=== PATIENT | male | born 1985 | race Hispanic/Latino ===

== ENCOUNTER 2020-07-01 05:08 | Inpatient (IN) | payer SELFPAY ==
[2020-07-01 05:18] VITALS: BMI 28.0
[2020-07-01] MEDS ORDERED: Propofol BOLUS 1,000 MG/100 ML VIAL IV PRN (05:20)
[2020-07-01] MEDS ORDERED: Propofol 1,000 MG/100 ML VIAL IV PRN (05:20)
[2020-07-01] MEDS ORDERED: Propofol 1,000 MG/100 ML VIAL IV ONE (05:26)
[2020-07-01 05:32] VITALS: TEMP 98.7
[2020-07-01] MEDS: Sodium Chloride 0.9% 1,000 ML IV SCH ×2 (06:16→16:54)
[2020-07-01] MEDS ORDERED: Sodium Chloride 0.9% (PF) 10 ML VIAL FS PRN (06:45)
[2020-07-01 06:48] LABS: #Eosinphils 0.1 10x3/uL (0.0-0.5); #Monocytes 0.3 10x3/uL (0.0-1.1); #Neutrophils 2.1 10x3/uL (1.5-8.4); %Basophils 0.5 % (0.0-2.0); %Eosinophils 1.4 % (0.0-6.0); %Lymphocytes 44.4 % (18.0-47.0); %Monocytes 5.9 % (0.0-10.0); %Neutrophils 47.6 % (40.0-75.0); Hemoglobin 13.8 g/dL (13.5-17.5); Mean Corpuscular HGB CONC 33.2 g/dL (32.0-36.0); Mean Corpuscular Hemoglobin 29.5 pg (27.0-33.0); Mean Corpuscular Volume 88.9 fl (81.2-95.1); Mean Platelet Volume 9.2 fl (7.4-10.4); Platelet Count 269 10x3/uL (150-450); RBC Distribution Width 12.7 % (11.5-14.5); Red Blood Cell (RBC) Count 4.68 10x6/uL (4.32-5.72); White Blood Cell (WBC) Count 4.4 10x3/uL (3.5-10.5)
[2020-07-01 07:02] LABS: Anion Gap 15 mmol/L (10-20); BUN (Urea Nitrogen) 7 mg/dL (8.9-20.6); Calc. Creatinine Clearance 160 mL/min (70-130); Calcium 7.8 mg/dL (7.8-10.44); Carbon Dioxide 24 mmol/L (22-29); Chloride 108 mmol/L (98-107); Glucose 120 mg/dL (70-105); Magnesium 2.1 mg/dL (1.6-2.6); Sodium 143 mmol/L (136-145)
[2020-07-01] MEDS: Enoxaparin Sodium 40 MG/0.4 ML SYRINGE SC SCH (08:13)
[2020-07-01] MEDS: Pantoprazole 40 MG VIAL IVP SCH (08:13)
[2020-07-01] MEDS ORDERED: Multivit, Adult Inj 10 ML VIAL IV SCH (10:45)
[2020-07-01] MEDS ORDERED: THIAMINE HCL IVPB SCH (12:00)
[2020-07-01] MEDS ORDERED: SODIUM CHLORIDE IVPB SCH (12:00)
[2020-07-01] MEDS ORDERED: MULTIVITAMINS IVPB SCH (12:00)
[2020-07-01] MEDS ORDERED: ALPRAZolam 0.25 MG TAB PO PRN (12:52)
[2020-07-01] MEDS ORDERED: Acetaminophen 325 MG TAB PO PRN (12:52)
[2020-07-01] MEDS ORDERED: Dexmedetomidine In 0.9 % NaCl 100 ML IVPB SCH (16:45)
[2020-07-02] MEDS: Sodium Chloride 0.9% 1,000 ML IV SCH (01:23)
[2020-07-02 03:55] LABS: Anion Gap 11 mmol/L (10-20); BUN (Urea Nitrogen) 9 mg/dL (8.9-20.6); Calc. Creatinine Clearance 178 mL/min (70-130); Carbon Dioxide 29 mmol/L (22-29); Chloride 102 mmol/L (98-107); Glucose 102 mg/dL (70-105); Magnesium 1.6 mg/dL (1.6-2.6); Sodium 138 mmol/L (136-145)
[2020-07-02 04:00] LABS: #Eosinphils 0.2 10x3/uL (0.0-0.5); #Monocytes 0.5 10x3/uL (0.0-1.1); #Neutrophils 3.1 10x3/uL (1.5-8.4); %Basophils 0.7 % (0.0-2.0); %Eosinophils 2.5 % (0.0-6.0); %Lymphocytes 37.4 % (18.0-47.0); %Monocytes 8.5 % (0.0-10.0); %Neutrophils 50.6 % (40.0-75.0); Mean Corpuscular HGB CONC 32.8 g/dL (32.0-36.0); Mean Corpuscular Hemoglobin 29.9 pg (27.0-33.0); Mean Corpuscular Volume 91.3 fl (81.2-95.1); Mean Platelet Volume 9.3 fl (7.4-10.4); Platelet Count 194 10x3/uL (150-450); RBC Distribution Width 12.7 % (11.5-14.5); Red Blood Cell (RBC) Count 4.01 10x6/uL (4.32-5.72)
[2020-07-02 05:10] VITALS: BP 111/72
[2020-07-02] MEDS: Enoxaparin Sodium 40 MG/0.4 ML SYRINGE SC SCH (08:50)
[2020-07-02] MEDS: Pantoprazole 40 MG VIAL IVP SCH (08:51)
[2020-07-02] MEDS ORDERED: Folic Acid 0.4 MG in Syringe 0 ML SC SCH (09:00)
[2020-07-02] MEDS ORDERED: Magnesium Oxide 400 MG TAB PO SCH (10:00)
== END 2020-07-02 12:40 | disposition home or self-care (01) | DRG 896 ==
LOC: CSHIMCU 05:08
PROVIDERS: ADMIT Family Medicine; ATTEND Internal Medicine
PROC: 5A1935Z Respiratory Ventilation, Less than 24 Consecutive Hours (ICD-10-PCS; principal; 2020-07-01)
DX: F10.229 Alcohol dependence with intoxication, unspecified (principal); J96.00 Acute respiratory failure, unspecified whether with hypoxia or hypercapnia; G92 Toxic encephalopathy; F31.9 Bipolar disorder, unspecified; F19.10 Other psychoactive substance abuse, uncomplicated; F10.239 Alcohol dependence with withdrawal, unspecified
CPT/HCPCS: 80048; 83735; 85025; 94002; C9113; J1650; J2704; J3411; J7030